=== PATIENT | female | born 1970 | race Two or more races ===

== ENCOUNTER 2023-07-15 17:32 | Emergency (ER) | payer OTHER ==
[~2023-07-15] VITALS: Ht 167.6 cm; Wt 104.8 kg
[2023-07-15 19:16] VITALS: BP 135/70; TEMP 98.7; O2SAT 98
== END 2023-07-15 18:48 ==
LOC: ER 17:39
DX: G89.29 Other chronic pain (principal); M25.551 Pain in right hip; M19.90 Unspecified osteoarthritis, unspecified site; I10 Essential (primary) hypertension